=== PATIENT | male | born 2000 ===

== ENCOUNTER 2020-02-22 09:28 | Outpatient (REF) | payer SELFPAY ==
[2020-02-27 01:57] LABS: SARS-CoV-2 RNA Undetected (Undetected); SARS-CoV-2 Specimen Source Nasal
== END 2020-02-22 09:48 ==
LOC: NCHCN 09:28
PROVIDERS: PCP Internal Medicine; Visit Provider Internal Medicine
DX: Z11.59 Encounter for screening for other viral diseases (principal)
CPT/HCPCS: U0003